=== PATIENT | female | born 1950 | race Caucasian/White ===

== ENCOUNTER 2021-07-13 06:40 | Day surgery (SDC) | payer MEDICARE ==
[~2021-07-13] VITALS: Ht 154.9 cm; Wt 74.8 kg
[~2021-07-13 06:40] MED LIST: ARNUITY EL50 MCG/ACT; BUMETANIDE0.5 M1 PO; JARDIANCE25 MG PO; LABETALOL HYDR100 MG; LANTUS SOL100 UNIT/M SC; LINZESS72 MCG PO; LIPITOR80 M1 PO; NORVASC2.5 M1 PO; OMEPRAZOLE DR20 MG PO; VICTOZA18 MG/3 ML SC
[2021-07-13 09:20] VITALS: BP 148/69
== END 2021-07-13 09:15 | disposition home or self-care (01) ==
LOC: ENDO 06:40 → ORM 08:00 → ENDO 09:15
PROVIDERS: ATTEND Surgery
PROC: 0DBK8ZX Excision of Ascending Colon, Via Natural or Artificial Opening Endoscopic, Diagnostic (ICD-10-PCS; principal; 2021-07-13)
PROC: 0DB68ZX Excision of Stomach, Via Natural or Artificial Opening Endoscopic, Diagnostic (ICD-10-PCS; 2021-07-13)
DX: Z12.11 Encounter for screening for malignant neoplasm of colon (principal); D12.2 Benign neoplasm of ascending colon; K57.30 Diverticulosis of large intestine without perforation or abscess without bleeding; K64.8 Other hemorrhoids; K44.9 Diaphragmatic hernia without obstruction or gangrene; K31.7 Polyp of stomach and duodenum; E11.9 Type 2 diabetes mellitus without complications; I10 Essential (primary) hypertension; Z85.3 Personal history of malignant neoplasm of breast; Z86.010 Personal history of colon polyps; Z98.890 Other specified postprocedural states; Z79.4 Long term (current) use of insulin

== ENCOUNTER 2023-01-03 06:54 | Day surgery (SDC) | payer MEDICARE ==
[~2023-01-03] VITALS: Ht 154.9 cm; Wt 74.8 kg
[~2023-01-03 06:54] MED LIST changes: +B-12100 MCG PO; +CLARINEX5 MG PO; +DESLORATADINE5 MG PO; +MAGNESIUM 250 M1 TAB PO; +VITAMIN D1000 UNIT PO
[2023-01-03] MEDS ORDERED: PERCOCET 5/325M1 TAB PO (08:47)
[2023-01-03 10:25] VITALS: BP 132/78
== END 2023-01-03 10:05 | disposition home or self-care (01) ==
LOC: ORM 06:54
PROVIDERS: ATTEND Surgery
PROC: 0JB60ZZ Excision of Chest Subcutaneous Tissue and Fascia, Open Approach (ICD-10-PCS; principal; 2023-01-03)
DX: D17.1 Benign lipomatous neoplasm of skin and subcutaneous tissue of trunk (principal); I10 Essential (primary) hypertension; E11.9 Type 2 diabetes mellitus without complications; Z79.4 Long term (current) use of insulin
CPT/HCPCS: J0131; S0077